=== PATIENT | male | born 1970 | race African-American/Black ===

== ENCOUNTER 2024-01-10 12:11 | Outpatient (AMB) | payer OTHER, SELFPAY ==
--- NOTE | 2024-01-10 12:32 | MHC.OFFWIV ---
Intake Vital Signs 01/10/24 12:36 Height 6 ft Weight 220 lb BMI 29.8 BP 140/90 H Blood Pressure Location Lt brachial Position Sitting Pulse 64 Pulse Source Pulse Oximeter Pulse Oximetry (%) 97 Oxygen Delivery Method Room Air Intake Visit Reasons: EP- Sinus congestion on LT side Intake Note: Patient here for sinus congestion, left eye redness and swelling, headaches, light sensitivity. Patient Tobacco Use Status: Never used Tobacco Allergies No Known Allergies Allergy (Verified 01/10/24 12:35) Do you need a note to return to daycare/school/sports/work: Yes HPI EP- Sinus congestion on LT side HPI Details This note is constructed using voice recognition software. While every effort has been made to ensure accuracy, claims auditor errors may have been included. The patient is a 53 year old male who presents to the clinic today with one month history of left-sided sinus pain, headaches and eye pressure, and some light sensitivity. He denies any visual change or pain with movement of his eye.. He also notes he is developing darker stools and constipation with some abdomen pain in the LUQ for the past few days, which he attributes to stress. He reports fever when the symptoms started about a month ago, but none since. He denies chills, cough, SOB. He took tylenol today and this helped some with his symptoms. He denies bleeding from his rectum, or vomiting or nausea. 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 [facility] Social History Patient Tobacco Use Status: Never used Tobacco Review of Systems Const All systems reviewed & are unremarkable except as noted in HPI and below Physical Exam Vital Signs: Last Vital Signs Pulse 64 01/10/24 12:36 BP 140/90 H 01/10/24 12:36 Pulse Ox 97 01/10/24 12:36 Oxygen Delivery Method Room Air 01/10/24 12:36 BMI result Body Mass Index 29.8 Const General: cooperative, healthy appearing, comfortable and no acute distress Orientation/consciousness: patient oriented x3 Limitations: no limitations HEENT Head: Yes normal to inspection Ears: hearing grossly normal bilaterally, external ears normal and TM's normal bilaterally General nose exam: Normal external nose present, Abnormal mucous membranes and turbinates present erythematous and Nasal discharge present purulent Face and sinus: Yes normal facial exam and Yes sinus tenderness (Left maxillary) Mouth: Normal oral and palatal mucosa present and moist mucous membranes Throat: Yes tonsils normal, Yes uvula midline, Yes posterior oropharynx abnormal (Erythema), Yes postnasal drainage and Yes cobblestoning Eyes Visual Garcia: normal visual garcia by confrontation Alignment and Position: alignment normal Periorbital: periorbital findings normal Eyelids: Yes eyelids normal Conjunctivae: conjunctival abnormal left conjunctival injection circumcorneal Sclerae: sclerae normal Corneas: corneas normal Pupils: Equal, round and reactive pupils present Neck Neck: Yes normal visual inspection Resp Effort & Inspection: normal respiratory effort, able to speak in complete sentences, Actively coughing, no respiratory distress, not tachypneic, no tripod positioning and no use of accessory muscles Auscultation: clear to auscultation bilaterally Cardio Rate: regular rate Rhythm: regular rhythm Heart sounds: normal S1 and S2 GI Inspection: Yes normal to inspection and No distended Palpation (GI): Soft to palpation, nontender and no guarding Percussion: Yes normal to percussion Skin General skin exam: no rashes or lesions noted Neuro General: patient oriented x3 Cranial nerves: Yes Equal, round and reactive pupils present Extrem General: Yes normal to inspection and Yes no clubbing, cyanosis or edema Assessment & Plan Assessment & Plan (1) Sinusitis: Code(s): J32.9 - Chronic sinusitis, unspecified Qualifiers: Sinusitis location: maxillary Chronicity: acute Recurrence: not specified as recurrent Qualified Code(s): J01.00 - Acute maxillary sinusitis, unspecified Plan: Antimicrobial therapy sent to requested pharmacy. Advised patient to follow with PCP with worsening or failure to resolve. Advised patient to follow with Ophthalmology should the redness in his eye not improve with treatment. Supportive measures encouraged and reviewed including hydration, humidification, sinus rinse. Plan See above for full details and plan. Advised patient to follow up with PCP for scheduling an ordering of screening colonoscopy as he is due. Additionally advised patient to follow up with PCP for chronic disease management and chronic concerns. Coding Level of Care Code Est Pt Level 3 (45263) Diagnoses Acute maxillary sinusitis, recurrence not specified J01.00 Sinusitis location: maxillary Chronicity: acute Recurrence: not specified as recurrent
[2024-01-10 12:36] VITALS: BP 140/90; PULSE 64; O2SAT 97; BMI 29.8
== END 2024-01-10 12:58 | disposition home or self-care (01) ==
PROVIDERS: Visit Provider Registered Nurse
DX: J01.00 Acute maxillary sinusitis, unspecified (principal)
CPT/HCPCS: 99213